=== PATIENT | female | born 1995 | race Caucasian/White ===

== ENCOUNTER 2017-01-30 01:26 | Emergency (ER) | payer BC ==
--- NOTE | 2017-01-30 09:43 | ER ---
DATE SEEN: 01/30/2017 CHIEF COMPLAINT: Alcohol intoxication. HISTORY OF PRESENT ILLNESS: This is an 20-year-old female brought in by ambulance after her roommates called for help after she was unresponsive after a bout of drinking. She is able to give minimal history, but denies any headache, chest pain, or shortness of breath. It is unclear how much she had taken. SOCIAL HISTORY: She lives with a roommate at the [facility]. ALLERGIES: None recorded. PHYSICAL EXAMINATION: VITAL SIGNS: Temperature 97.6, blood pressure 123/62, pulse is 98, and saturation 93% room air. HEENT: Head is normal size. There is a bruise on the left zygoma. Pupils are dilated, but equal and reactive to light. NECK: No tenderness to palpation. Soft. CARDIOVASCULAR: Normal. RESPIRATORY: Clear. NEUROLOGIC: No focal findings. She arouses and answers questions sluggishly. LABORATORY DATA: CBC and basic profile are pending as is the alcohol .29. IMPRESSION: Alcohol intoxication, acute. PLAN: The patient is deemed safe to go back with observation and we will obtain a relative for discharge. /[id number] KAREN/ANNITA MACEDO
== END 2017-01-30 07:25 | disposition home or self-care (01) ==
LOC: FB.ED 01:26
DX: F10.129 Alcohol abuse with intoxication, unspecified (principal)
CPT/HCPCS: 36415; 80048; 85025; 99284; G0480

== ENCOUNTER 2017-07-22 20:47 | Emergency (ER) | payer BC ==
[2017-07-22] MEDS ORDERED: Ketorolac 30 MG/ML SDV IVPUSH ONE (21:31)
[2017-07-22] MEDS ORDERED: Ondansetron 4 MG/2 ML SDV IVPUSH ONE (21:31)
[2017-07-22] MEDS ORDERED: Sodium Chloride 0.9% 1,000 ML IV ONE ×2 (21:31→22:32)
--- NOTE | 2017-07-23 00:09 | EDM.PDOC ---
ED HPI GENERAL MEDICAL PROBLEM - General Chief Complaint: Gastrointestinal Problem Stated Complaint: NAUSEA Time Seen by Provider: 07/22/17 21:10 Source of Information: Reports: Patient History Limitations: Reports: No Limitations - History of Present Illness INITIAL COMMENTS - FREE TEXT/NARRATIVE: c/o diarrhea and abd cramps pt with BM x 15 today, loose, no f/c/d, had N, no V is a college student in town and works at [employer] was tachycardic on arrival and had 1+ ketones in urine even after 1 liter NS, given a 2nd bag HR came down to normal inc'd WBC c/w adrenergic stress and dehydration, no infection other than gastroenteritis unable to obtain stool specimen for Hemoccult, colitis a possibility but unlikely mid abd Pain Score (Numeric/FACES): 7 - Related Data Allergies Allergy/AdvReac Type Severity Reaction Status Date / Time No Known Allergies Allergy Verified 01/30/17 06:30 Home Meds: Home Meds NK [No Known Home Meds] 07/22/17 [History] Past Medical History - Past Health History Medical/Surgical History: Denies Medical/Surgical History Endocrine/Metabolic History: Reports: Obesity/BMI 30+ Social & Family History - Family History Family Medical History: Noncontributory - Tobacco Use Smoking Status *Q: Never Smoker - Caffeine Use Caffeine Use: Reports: None - Recreational Drug Use Recreational Drug Use: No ED ROS GENERAL - Review of Systems Review Of Systems: See Below Constitutional: Reports: Weakness, Decreased Appetite. Denies: Fever HEENT: Reports: No Symptoms Respiratory: Reports: No Symptoms Cardiovascular: Reports: No Symptoms Endocrine: Reports: No Symptoms GI/Abdominal: Reports: Abdominal Pain, Diarrhea, Nausea, Vomiting : Reports: No Symptoms Musculoskeletal: Reports: No Symptoms Skin: Reports: No Symptoms Neurological: Reports: No Symptoms Psychiatric: Reports: No Symptoms Hematologic/Lymphatic: Reports: No Symptoms Immunologic: Reports: No Symptoms ED EXAM, GI/ABD - Physical Exam Exam: See Below Exam Limited By: No Limitations General Appearance: Alert, WD/WN, No Apparent Distress Ears: Normal External Exam, Hearing Grossly Normal Nose: Normal Inspection, Normal Mucosa, No Blood Throat/Mouth: Normal Inspection, Normal Lips, Normal Teeth, Normal Gums, Normal Oropharynx, Normal Voice, No Airway Compromise Head: Atraumatic, Normocephalic Neck: Normal Inspection, Supple, Non-Tender, Full Range of Motion. No: Lymphadenopathy (R), Lymphadenopathy (L) Respiratory/Chest: No Respiratory Distress, Lungs Clear, Normal Breath Sounds, No Accessory Muscle Use, Chest Non-Tender Cardiovascular: No Edema, No Gallop, No JVD, No Murmur, No Rub, Tachycardia GI/Abdominal Exam: Normal Bowel Sounds, Soft, Non-Tender, No Distention, Other ( very good BS x 4) Back Exam: Normal Inspection, Full Range of Motion, NT Extremities: Normal Inspection, Normal Range of Motion, Non-Tender, No Pedal Edema Neurological: Alert, Oriented, CN II-XII Intact, Normal Cognition, Normal Reflexes, No Motor/Sensory Deficits Psychiatric: Normal Affect, Normal Mood Skin Exam: Warm, Dry, Intact, Normal Color, No Rash Lymphatic: No Adenopathy Course - Vital Signs Last Recorded V/S: Last Vital Signs Temp 36.9 C 07/22/17 20:47 Pulse 139 H 07/22/17 20:47 Resp 18 07/22/17 20:47 BP 119/71 07/22/17 20:47 Pulse Ox 99 07/22/17 20:47 - Orders/Labs/Meds Orders: Active Orders 24 hr Category Date Time Status HCG QUALITATIVE,URINE [URCHEM] Stat Lab 07/22/17 22:33 Ordered Hemoccult [OCCULT BLOOD DIAGNOSTIC] [OP] Stat Lab 07/22/17 22:31 Ordered URINALYSIS W/MICROSCOPIC [UA W/MICROSCOPIC] [URIN] Stat Lab 07/22/17 22:31 Ordered Labs: Laboratory Tests 07/22/17 07/22/17 07/22/17 Range/Units 21:40 21:40 21:40 WBC 15.6 H (4.5-12.0) X10-3/uL RBC 5.24 H (3.23-5.20) x10(6)uL Hgb 15.1 (11.5-15.5) g/dL Hct 45.3 (30.0-51.3) % MCV 86.4 (80-96) fL MCH 28.7 (27.7-33.6) pg MCHC 33.3 (32.2-35.4) g/dL RDW 13.1 (11.5-15.5) % Plt Count 340 (125-369) X10(3)uL MPV 8.3 (7.4-10.4) fL Add Manual Diff Yes Neutrophils % (Manual) 93 H (46-82) % Band Neutrophils % 2 (0-6) % Lymphocytes % (Manual) 2 L (13-37) % Monocytes % (Manual) 3 L (4-12) % Sodium 138 (135-145) mmol/L Potassium 3.9 (3.5-5.3) mmol/L Chloride 103 (100-110) mmol/L Carbon Dioxide 23 (21-32) mmol/L BUN 11 (7-18) mg/dL Creatinine 0.7 (0.55-1.02) mg/dL Est Cr Clr Drug Dosing 135.09 mL/min Estimated GFR (MDRD) > 60 (>60) BUN/Creatinine Ratio 15.7 (9-20) Glucose 109 (80-116) mg/dL Calcium 9.2 (8.2-10.1) mg/dL Total Bilirubin 1.1 (0.1-1.2) mg/dL AST 14 (5-25) IU/L ALT 21 (12-36) U/L Alkaline Phosphatase 86 (56-112) IU/L C-Reactive Protein 1.0 H (0.5-0.9) mg/dL Total Protein 8.1 H (6.0-8.0) g/dL Albumin 4.1 (3.2-4.5) g/dL Globulin 4.0 g/dL Albumin/Globulin Ratio 1.0 Amylase (25-115) U/L Urine Color (YELLOW) Urine Appearance (CLEAR) Urine pH (5.0-6.5) Ur Specific [place] (1.010-1.025) Urine Protein (NEGATIVE) mg/dL Urine Glucose (UA) (NEGATIVE) mg/dL Urine Ketones (NEGATIVE) mg/dL Urine Occult Blood (NEGATIVE) Urine Nitrite (NEGATIVE) Urine Bilirubin (NEGATIVE) Urine Urobilinogen (NEGATIVE) mg/dL Ur Leukocyte Esterase (NEGATIVE) Urine RBC (0) Urine WBC (0) Ur Squamous Epith Cells (NS,R,O) Urine Bacteria (NS) Urine HCG, Qual (NEGATIVE) 07/22/17 07/22/17 07/22/17 Range/Units 21:45 23:33 23:33 WBC (4.5-12.0) X10-3/uL RBC (3.23-5.20) x10(6)uL Hgb (11.5-15.5) g/dL Hct (30.0-51.3) % MCV (80-96) fL MCH (27.7-33.6) pg MCHC (32.2-35.4) g/dL RDW (11.5-15.5) % Plt Count (125-369) X10(3)uL MPV (7.4-10.4) fL Add Manual Diff Neutrophils % (Manual) (46-82) % Band Neutrophils % (0-6) % Lymphocytes % (Manual) (13-37) % Monocytes % (Manual) (4-12) % Sodium (135-145) mmol/L Potassium (3.5-5.3) mmol/L Chloride (100-110) mmol/L Carbon Dioxide (21-32) mmol/L BUN (7-18) mg/dL Creatinine (0.55-1.02) mg/dL Est Cr Clr Drug Dosing mL/min Estimated GFR (MDRD) (>60) BUN/Creatinine Ratio (9-20) Glucose (80-116) mg/dL Calcium (8.2-10.1) mg/dL Total Bilirubin (0.1-1.2) mg/dL AST (5-25) IU/L ALT (12-36) U/L Alkaline Phosphatase (56-112) IU/L C-Reactive Protein (0.5-0.9) mg/dL Total Protein (6.0-8.0) g/dL Albumin (3.2-4.5) g/dL Globulin g/dL Albumin/Globulin Ratio Amylase 24 L (25-115) U/L Urine Color Yellow (YELLOW) Urine Appearance Slightly cloudy (CLEAR) Urine pH 6.0 (5.0-6.5) Ur Specific [place] 1.015 (1.010-1.025) Urine Protein Negative (NEGATIVE) mg/dL Urine Glucose (UA) Normal (NEGATIVE) mg/dL Urine Ketones 50 H (NEGATIVE) mg/dL Urine Occult Blood Negative (NEGATIVE) Urine Nitrite Negative (NEGATIVE) Urine Bilirubin Negative (NEGATIVE) Urine Urobilinogen Normal (NEGATIVE) mg/dL Ur Leukocyte Esterase Negative (NEGATIVE) Urine RBC 0-5 (0) Urine WBC 0-5 (0) Ur Squamous Epith Cells Few H (NS,R,O) Urine Bacteria Few H (NS) Urine HCG, Qual Negative (NEGATIVE) Meds: Medications Discontinued Medications Generic Name Dose Route Start Last Admin Trade Name Gayle PRN Reason Stop Dose Admin Sodium Chloride 1,000 mls @ 999 mls/hr 07/22/17 21:31 07/22/17 21:59 Normal Saline IV 07/22/17 22:31 999 mls/hr .BOLUS ONE Administration Sodium Chloride 1,000 mls @ 999 mls/hr 07/22/17 22:32 07/22/17 23:00 Normal Saline IV 07/22/17 23:32 999 mls/hr .BOLUS ONE Administration Ketorolac Tromethamine 30 mg 07/22/17 21:31 07/22/17 22:01 Toradol IVPUSH 07/22/17 21:32 30 mg ONETIME ONE Administration Ondansetron HCl 4 mg 07/22/17 21:31 07/22/17 22:01 Zofran IVPUSH 07/22/17 21:32 4 mg ONETIME ONE Administration Departure - Departure Time of Disposition: 00:08 Disposition: Home, Self-Care 01 Condition: Good Clinical Impression: Gastroenteritis, Dehydration, Leukocytosis - Discharge Information Instructions: Viral Gastroenteritis, Adult, Dehydration, Adult, Rehydration, Adult Referrals: PCP,None [Primary Care Provider] - Forms: ED Department Discharge, ED Return to Work/School Form Additional Instructions: For pain and cramping, take ibuprofen 200 mg 3 tabs and acetaminophen 500 mg 2 tabs with meals and bedtime tomorrow. Increase fluids, at least 2 liters daily without caffeine. Rest. Use good handwashing. No work tomorrow unless you are feeling much better. See your doctor in 2 days if you are not completely recovered. Return to ED if you are feeling worse. - My Orders Last 24 Hours: My Active Orders 07/22/17 22:31 Hemoccult [OCCULT BLOOD DIAGNOSTIC] [OP] Stat URINALYSIS W/MICROSCOPIC [UA W/MICROSCOPIC] [URIN] Stat 07/22/17 22:33 HCG QUALITATIVE,URINE [URCHEM] Stat - Assessment/Plan Last 24 Hours: My Active Orders 07/22/17 22:31 Hemoccult [OCCULT BLOOD DIAGNOSTIC] [OP] Stat URINALYSIS W/MICROSCOPIC [UA W/MICROSCOPIC] [URIN] Stat 07/22/17 22:33 HCG QUALITATIVE,URINE [URCHEM] Stat
== END 2017-07-23 00:25 | disposition home or self-care (01) ==
LOC: FB.ED 20:47
DX: K52.9 Noninfective gastroenteritis and colitis, unspecified (principal); E86.0 Dehydration; D72.829 Elevated white blood cell count, unspecified
CPT/HCPCS: 36415; 80053; 81001; 81025; 82150; 85025; 86140; 96361; 96374; 96375; 99284; J1885; J2405; J7030